=== PATIENT | male | born 1995 | race Two or more races ===

== ENCOUNTER 2023-05-06 15:56 | Emergency (ER) | payer SELFPAY ==
[~2023-05-06] VITALS: Ht 175.3 cm; Wt 90.0 kg
[2023-05-06 16:04] VITALS: BP 122/68; RESP 18; O2SAT 99
[2023-05-06 16:27] LABS: Basophils # (auto) 0 10 ^3/uL (0-0.2); Basophils % (auto) 0.5 % (0.0-2.0); Eosinophils # (auto) 0.1 10 ^3/uL (0-0.8); Eosinophils % (auto) 1.4 % (0.0-7.0); Hematocrit 44.8 % (41.0-53.0); Hemoglobin 14.8 g/dL (13.5-17.5); Lymphocytes # (auto) 1.7 10 ^3/uL (0.4-5.4); Lymphocytes % (auto) 26.4 % (10.0-50.0); Mean Corpuscular Hemoglobin 29.2 pg (28.0-32.0); Mean Corpuscular Hgb Conc. 33.1 g/dL (32.0-36.0); Mean Corpuscular Volume 88.1 fL (80.0-100.0); Monocytes # (auto) 0.5 10 ^3/uL (0-1.3); Monocytes % (auto) 8.4 % (0.0-12.0); Neutrophils % (auto) 63.3 % (37.0-80.0); Red Blood Cells 5.08 10^6/uL (4.5-5.90); Red Cell Distribution Width 13.4 % (11.8-14.3); White Blood Cell 6.3 10^3/uL (4.4-10.8)
[2023-05-06 16:50] LABS: Alanine Aminotransferase 48 U/L (7-40); Albumin 4.6 g/dL (3.2-4.8); Alkaline Phosphatase 104 U/L (46-116); Anion Gap 8 (5-15); Aspartate Aminotransferase 24 U/L (13-40); BUN/Creatinine Ratio 8.6 (10.0-20.0); Bilirubin, Total 1.8 mg/dL (0.2-1.0); Blood Urea Nitrogen 10 mg/dL (9-23); Calcium 9.5 mg/dL (8.5-10.1); Carbon Dioxide 24 mmol/L (20-30); Chloride 106 mmol/L (98-107); Glucose 103 mg/dL (74-106); Potassium 4.3 mmol/L (3.5-5.1); Sodium 138 mmol/L (136-145); Total Protein 7.2 g/dL (5.7-8.2)
[2023-05-06 17:18] LABS: Urine Bacteria NONE SEEN /hpf (None Seen); Urine Blood Negative /uL (Negative); Urine Clarity Clear (Clear); Urine Color Colorless (Yellow); Urine Protein, UAD Negative (Negative); Urine Specific Gravity 1.017 (1.001-1.035); Urine Urobilinogen Normal (Negative); Urine WBC 1 /hpf (0 - 3)
[2023-05-06] MEDS ORDERED: NABU-72 PO (19:58)
[2023-05-06] MEDS ORDERED: BENZ100C97 PO (19:58)
[2023-05-06 21:01] VITALS: PULSE 73
== END 2023-05-06 20:25 | disposition home or self-care (01) ==
LOC: ER 15:56
DX: J20.9 Acute bronchitis, unspecified (principal); R07.89 Other chest pain; Z79.899 Other long term (current) drug therapy
CPT/HCPCS: 36415; 71045; 80053; 81001; 84484; 85025; 93005

== ENCOUNTER 2023-12-04 22:36 | Emergency (ER) | payer SELFPAY ==
[~2023-12-04] VITALS: Ht 175.3 cm; Wt 88.4 kg
[2023-12-04 22:36] VITALS: BP 125/80; PULSE 97; RESP 16; O2SAT 96
[~2023-12-04 22:36] MED LIST: BENZ100C97 PO; NABU-72 PO
[2023-12-05] MEDS ORDERED: IBUP-1456 PO (02:09)
== END 2023-12-05 02:17 | disposition home or self-care (01) ==
LOC: ER 22:36
DX: S09.90XA Unspecified injury of head, initial encounter (principal); W50.1XXA Accidental kick by another person, initial encounter; Y93.89 Activity, other specified; Y92.89 Other specified places as the place of occurrence of the external cause; Y99.8 Other external cause status
CPT/HCPCS: 70450; 71046